=== PATIENT | female | born 1975 | race Caucasian/White ===

== ENCOUNTER 2019-09-29 14:52 | Emergency (ER) | payer SELFPAY ==
--- NOTE | 2019-09-29 15:18 | EDM.PDOC ---
ED HPI GENERAL MEDICAL PROBLEM - General Chief Complaint: ENT Problem Stated Complaint: TOOTH ACHE Time Seen by Provider: 09/29/19 15:05 Source of Information: Reports: Patient History Limitations: Reports: No Limitations, Other - History of Present Illness INITIAL COMMENTS - FREE TEXT/NARRATIVE: Patient presents to ER with complaints of a 2 week history of a toothache to the lower molar. Admits that she needs to be seen by a dentist but doesn't have insurance and cannot afford it. She states she has been taking Aleve but only dulls the pain. She has not seen a dentist in some time. Is noting mild swelling to the lower jaw line and hurts to chew. Onset: Gradual Duration: Week(s):, Getting Worse Location: Reports: Head Quality: Reports: Ache, Sharp Severity: Severe Improves with: Reports: Medication Treatments [employer]: Reports: NSAIDS - Related Data Allergies Allergy/AdvReac Type Severity Reaction Status Date / Time Sulfa (Sulfonamide Allergy Hives Verified 09/29/19 15:14 Antibiotics) Home Meds: Home Meds Amoxicillin/Potassium Clav [Augmentin 875-125 Tablet] 1 each PO BID #20 [Rx] Past Medical History - Past Health History Medical/Surgical History: Denies Medical/Surgical History Social & Family History - Tobacco Use Smoking Status *Q: Never Smoker ED ROS ENT - Review of Systems Review Of Systems: See Below Constitutional: Denies: Fever, Chills, Malaise, Weakness, Decreased Appetite HEENT: Reports: Dental Pain. Denies: Ear Pain, Rhinitis, Sinus Problem Respiratory: Denies: Shortness of Breath, Cough Cardiovascular: Denies: Chest Pain, Edema, Lightheadedness Endocrine: Denies: Fatigue GI/Abdominal: Denies: Abdominal Pain, Nausea, Vomiting : Reports: No Symptoms Musculoskeletal: Reports: No Symptoms Skin: Reports: No Symptoms Neurological: Reports: No Symptoms Psychiatric: Reports: No Symptoms ED EXAM, ENT - Physical Exam Exam: See Below Exam Limited By: No Limitations General Appearance: Alert, WD/WN, No Apparent Distress Ears: Normal External Exam, Normal TMs Nose: Normal Inspection, Normal Mucousa, No Blood Mouth/Throat: Dental Abcess, Dental Pain (multiple dental caries noted.), Dental Tenderness Head: Normocephalic Neck: Normal Inspection, Supple, Non-Tender Respiratory/Chest: No Respiratory Distress, Lungs Clear, Normal Breath Sounds Cardiovascular: Regular Rate, Rhythm GI/Abdominal: Normal Bowel Sounds, Soft, Non-Tender Neurological: Alert, Oriented Skin: Warm, Dry Departure - Departure Time of Disposition: 15:19 Disposition: Home, Self-Care 01 Condition: Good Clinical Impression: Dental abscess - Discharge Information *PRESCRIPTION DRUG MONITORING PROGRAM REVIEWED*: No *COPY OF PRESCRIPTION DRUG MONITORING REPORT IN PATIENT NUVIA: No Forms: ED Department Discharge Additional Instructions: 1. Rest 2. Soft diet 3. Augmentin 875 mg BID for 10 days 4. Ibuprofen 600 mg with 500 mg of tylenol every 6 hours as needed for pain 5. Follow up with dentist
== END 2019-09-29 15:30 | disposition home or self-care (01) ==
LOC: CC.ED 14:52
DX: K04.7 Periapical abscess without sinus (principal); K02.9 Dental caries, unspecified; Z88.2 Allergy status to sulfonamides
CPT/HCPCS: 99282

== ENCOUNTER 2019-10-27 11:20 | Inpatient (IN) | payer BC ==
[2019-10-27] MEDS ORDERED: Sodium Chloride 0.9% 1,000 ML IV ONE (12:00)
--- NOTE | 2019-10-27 12:03 | EDM.PDOC ---
ED HPI GENERAL MEDICAL PROBLEM - General Chief Complaint: ENT Problem Stated Complaint: TOOTH INFECTION Time Seen by Provider: 10/27/19 11:47 Source of Information: Reports: Patient History Limitations: Reports: No Limitations - History of Present Illness INITIAL COMMENTS - FREE TEXT/NARRATIVE: This patient is a 44 year old female that presents to the ER. Patient reports that couple weeks ago having right upper dental pain, placed on amoxicillin. Patient reports the pain resolved, but then 2 days later after abx tx she had a sore to the right upper mouth near the fractured tooth. Patient reports that that area began to have swelling and now has swelling to the right side of the face. Patient reports having redness to the right side of face. Patient reports severe pain and tenderness to the right side of face and sinuses and headache. Onset Date: 10/25/19 Duration: Day(s): (2), Getting Worse Location: Reports: Face Front/Back Body Image: 1 - redness, heat, swelling, pain, tenderness Quality: Reports: Throbbing Severity: Severe Improves with: Reports: None Worsens with: Reports: None Associated Symptoms: Reports: Headaches, Malaise. Denies: Confusion, Chest Pain , Cough, cough w sputum, Diaphoresis, Fever/Chills, Loss of Appetite, Nausea/ Vomiting, Rash, Seizure, Shortness of Breath, Syncope, Weakness Right Upper Face/Facial Pain Score (Numeric/FACES): 7 - Related Data Allergies Allergy/AdvReac Type Severity Reaction Status Date / Time Sulfa (Sulfonamide Allergy Hives Verified 10/27/19 11:32 Antibiotics) Past Medical History - Past Health History Medical/Surgical History: Denies Medical/Surgical History - Past Surgical History HEENT Surgical History: Reports: Other (See Below) Other HEENT Surgeries/Procedures: Lazy eye carrections x2 Social & Family History - Family History Family Medical History: Noncontributory - Tobacco Use Smoking Status *Q: Never Smoker - Caffeine Use Caffeine Use: Reports: Coffee - Recreational Drug Use Recreational Drug Use: No ED ROS ENT - Review of Systems Review Of Systems: See Below Constitutional: Reports: No Symptoms. Denies: Fever HEENT: Reports: Dental Pain, Sinus Problem, Other (facial sinus swelling right face. dental abscess. cant open mouth well.). Denies: Throat Swelling Respiratory: Reports: No Symptoms Cardiovascular: Reports: No Symptoms Endocrine: Reports: No Symptoms GI/Abdominal: Reports: No Symptoms : Reports: No Symptoms Musculoskeletal: Reports: No Symptoms Skin: Reports: Erythema (right face) Neurological: Reports: No Symptoms Psychiatric: Reports: No Symptoms Hematologic/Lymphatic: Reports: No Symptoms Immunologic: Reports: No Symptoms ED EXAM, ENT - Physical Exam Exam: See Below Exam Limited By: No Limitations General Appearance: Alert, WD/WN, No Apparent Distress, Anxious Eye Exam: Bilateral Eye: EOMI, PERRL Ears: Normal External Exam, Normal Canal, Hearing Grossly Normal, Normal TMs Nose: Normal Inspection, Normal Mucousa, No Blood Mouth/Throat: Normal Lips, Dental Abcess (moderate right upper with moderate swelling to the right face and to right temporal, inferior orbital. Redness, heat. Severe tenderness. ), Dental Pain, Dental Tenderness (right upper. dental decay. ), Trismus (moderate). No: Lip Swelling, Lip Ulcers, Muffled Voice, Peritonsillar Mass, Pharyngeal Erythema, Throat Pain, Throat Swelling, Tongue Swelling, Tonsillar Erythema, Tonsillar Exudates, Tonsillar Swelling, Uvular Deviation, Uvular Edema Head: Atraumatic, Normocephalic Neck: Normal Inspection, Supple, Non-Tender, Full Range of Motion, Lymphadenopathy (R). No: Limited Range of Motion Respiratory/Chest: No Respiratory Distress, Lungs Clear, Normal Breath Sounds, No Accessory Muscle Use Cardiovascular: Normal Peripheral Pulses, Regular Rate, Rhythm, No Edema, No Gallop, No JVD, No Murmur, No Rub GI/Abdominal: Soft, Non-Tender Back: Normal Inspection Extremities: Normal Inspection, Normal Range of Motion, Non-Tender, No Pedal Edema, Normal Capillary Refill Neurological: Alert, Oriented, Normal Cognition, Normal Gait, No Motor/Sensory Deficits Psychiatric: Anxious, Tearful Skin: Warm, Dry, Intact, Erythema (right face), Increased Warmth (right face) Lymphatic: No Adenopathy Course - Vital Signs Last Recorded V/S: Last Vital Signs Temp 98.9 F 10/27/19 11:27 Pulse 88 10/27/19 11:27 Resp 18 10/27/19 11:27 BP 127/81 10/27/19 11:27 Pulse Ox 99 10/27/19 11:27 - Orders/Labs/Meds Orders: Active Orders 24 hr Category Date Time Status Max Facial Sinus w Cont [CT] Stat Exams 10/27/19 12:00 Ordered C-REACTIVE PROTEIN [CHEM] Stat Lab 10/27/19 11:50 Ordered CBC WITH AUTO DIFF [HEME] Stat Lab 10/27/19 11:50 Ordered COMPREHENSIVE METABOLIC PN,CMP [CHEM] Stat Lab 10/27/19 11:50 Ordered CULTURE BLOOD [BC] Stat Lab 10/27/19 11:50 Ordered CULTURE BLOOD [BC] Stat Lab 10/27/19 11:50 Ordered HCG QUALITATIVE,SERUM [CHEM] Stat Lab 10/27/19 12:01 Ordered LACTIC ACID [CHEM] Stat Lab 10/27/19 11:50 Ordered Sodium Chloride 0.9% [Normal Saline] 1,000 ml Med 10/27/19 12:00 Active IV .BOLUS Blood Culture x2 Reflex Set [OM.PC] Stat Oth 10/27/19 11:50 Ordered Medication Orders Sodium Chloride (Normal Saline) 1,000 mls @ 1,000 mls/hr IV .BOLUS ONE Stop: 10/27/19 12:59 Meds: Medications Generic Name Dose Route Start Last Admin Trade Name Freq PRN Reason Stop Dose Admin Sodium Chloride 1,000 mls @ 1,000 mls/hr 10/27/19 12:00 Normal Saline IV 10/27/19 12:59 .BOLUS ONE Departure - Departure Time of Disposition: 12:10 Disposition: Admitted As Inpatient 65 Condition: Serious Clinical Impression: Dental abscess, Dental caries, Facial cellulitis - Discharge Information *PRESCRIPTION DRUG MONITORING PROGRAM REVIEWED*: Not Applicable *COPY OF PRESCRIPTION DRUG MONITORING REPORT IN PATIENT NUVIA: Not Applicable Forms: ED Department Discharge Sepsis Event Note - Evaluation Sepsis Screening Result: No Definite Risk - Focused Exam Vital Signs: Vital Signs Temp Pulse Resp BP Pulse Ox 10/27/19 11:27 98.9 F 88 18 127/81 99 Date Exam was Performed: 10/27/19 Time Exam was Performed: 12:05 - My Orders Last 24 Hours: My Active Orders 10/27/19 11:50 C-REACTIVE PROTEIN [CHEM] Stat CBC WITH AUTO DIFF [HEME] Stat COMPREHENSIVE METABOLIC PN,CMP [CHEM] Stat CULTURE BLOOD [BC] Stat CULTURE BLOOD [BC] Stat LACTIC ACID [CHEM] Stat Blood Culture x2 Reflex Set [OM.PC] Stat 10/27/19 12:00 Max Facial Sinus w Cont [CT] Stat Sodium Chloride 0.9% [Normal Saline] 1,000 ml IV .BOLUS 10/27/19 12:01 HCG QUALITATIVE,SERUM [CHEM] Stat - Assessment/Plan Last 24 Hours: My Active Orders 10/27/19 11:50 C-REACTIVE PROTEIN [CHEM] Stat CBC WITH AUTO DIFF [HEME] Stat COMPREHENSIVE METABOLIC PN,CMP [CHEM] Stat CULTURE BLOOD [BC] Stat CULTURE BLOOD [BC] Stat LACTIC ACID [CHEM] Stat Blood Culture x2 Reflex Set [OM.PC] Stat 10/27/19 12:00 Max Facial Sinus w Cont [CT] Stat Sodium Chloride 0.9% [Normal Saline] 1,000 ml IV .BOLUS 10/27/19 12:01 HCG QUALITATIVE,SERUM [CHEM] Stat Plan: PLEASE SEE RN NOTE FOR PFSH. PLEASE USE ER H&P ADMIT H&P.
[2019-10-27 12:33] LABS: CHLORIDE,CL 108 mEq/L (98-106); SODIUM,NA 144 mEq/L (136-145)
[2019-10-27] MEDS ORDERED: Iopamidol 612 MG/ML 100 ML Bottle IVPUSH ONE (12:35)
[2019-10-27] MEDS ORDERED: Morphine 2 MG/ML Syringe IVPUSH PRN (12:52)
[2019-10-27] MEDS: metroNIDAZOLE/Normal Saline 500 MG in Premix Bag 1 BAG IV SCH ×2 (13:25→20:07)
[2019-10-27] MEDS: cefTRIAXone 1 GM Vial IVPUSH SCH (13:25)
[2019-10-27] MEDS: Ondansetron 4 MG/2 ML SDV IV PRN ×2 (13:27→20:10)
[2019-10-27] MEDS: Ibuprofen 200 MG Tab PO SCH ×2 (14:34→19:32)
[2019-10-28] MEDS: Acetaminophen/oxyCODONE 325-5 MG Tab PO PRN ×3 (00:10→14:42)
[2019-10-28] MEDS: Acetaminophen 325 MG Tab PO PRN ×2 (04:06→12:39)
[2019-10-28] MEDS: metroNIDAZOLE/Normal Saline 500 MG in Premix Bag 1 BAG IV SCH ×2 (04:07→12:41)
[2019-10-28] MEDS: Ondansetron 4 MG/2 ML SDV IV PRN ×3 (04:12→14:44)
[2019-10-28] MEDS: Ibuprofen 200 MG Tab PO SCH ×3 (07:29→20:15)
[2019-10-28 08:13] LABS: CHLORIDE,CL 108 mEq/L (98-106); SODIUM,NA 143 mEq/L (136-145)
[2019-10-28] MEDS: cefTRIAXone 1 GM Vial IVPUSH SCH (12:42)
[2019-10-28] MEDS: Clindamycin Phosphate in D5W 600 MG in Premix Bag 1 BAG IV SCH ×4 (15:00→20:16)
[2019-10-28] MEDS ORDERED: Clindamycin Phosphate in D5W 600 MG in Premix Bag 1 BAG IV SCH ×2 (16:00)
--- NOTE | 2019-10-28 21:55 | PCM.PN ---
- General Info Date of Service: 10/28/19 Admission Dx/Problem (Free Text): Dental Abscess Facial Cellulitis Functional Status: Reports: Tolerating Diet, Ambulating. Denies: Pain Controlled - Review of Systems General: Reports: Malaise, Chills. Denies: Fever, Weakness, Fatigue HEENT: Reports: Other (tooth pain/facial discomfort). Denies: Ear Pain, Sore Throat Pulmonary: Reports: No Symptoms Cardiovascular: Reports: No Symptoms Gastrointestinal: Reports: No Symptoms Musculoskeletal: Reports: No Symptoms Skin: Reports: Other (right cheek mildly red near the right nare) Neurological: Reports: No Symptoms - Patient Data Vitals - Most Recent: Last Vital Signs Temp 98.5 F 10/28/19 16:00 Pulse 84 10/28/19 16:00 Resp 16 10/28/19 16:00 BP 113/73 10/28/19 16:00 Pulse Ox 97 10/28/19 16:00 Weight - Most Recent: 192 lb 1.6 oz I&O - Last 24 Hours: Intake & Output 10/28/19 10/28/19 10/28/19 06:59 14:59 22:59 Intake Total 100 50 Balance 100 50 Lab Results Last 24 Hours: Laboratory Results - last 24 hr 10/28/19 10/28/19 10/28/19 Range/Units 05:00 05:00 13:30 WBC 8.1 (5.0-10.0) 10^3/uL RBC 4.84 (4.00-5.50) 10^6/uL Hgb 13.8 (12.0-16.0) g/dL Hct 40.5 (37.0-47.0) % MCV 83.7 (82.0-94.0) fL MCH 28.5 (27.0-32.0) pg MCHC 34.1 (33.0-38.0) g/dL RDW Coeff of Lan 13.2 (11.0-15.0) % Plt Count 219 (150-400) 10^3/uL Neut % (Auto) 78.1 (35-85) % Lymph % (Auto) 12.4 (10-55) % [place] % (Auto) 7.6 (0-16) % Eos % (Auto) 1.8 (0-5) % Baso % (Auto) 0.1 (0-3) % Neut # (Auto) 6.35 (1.80-7.00) 10^3/uL Lymph # (Auto) 1.01 (1.00-4.80) 10^3/uL [place] # (Auto) 0.62 (0.00-0.80) 10^3/uL Eos # (Auto) 0.15 (0.00-0.45) 10^3/uL Baso # (Auto) 0.01 10^3/uL Sodium 143 (136-145) mEq/L Potassium 4.0 (3.5-5.0) mEq/L Chloride 108 H (98-106) mEq/L Carbon Dioxide 25 (21-32) mmol/L BUN 11 (7-18) mg/dL Creatinine 0.6 (0.6-1.0) mg/dL Est Cr Clr Drug Dosing 110.84 mL/min Estimated GFR (MDRD) > 60 (>=60) mL/min Glucose 100 H (75-99) mg/dL Calcium 7.9 L (8.4-10.1) mg/dL C-Reactive Protein 4.7 H (0.2-0.8) mg/dL Vancomycin Trough 9.9 L (10-20) ug/mL [place] Results Last 24 Hours: Microbiology 10/27/19 12:15 Aerobic Blood Culture - Preliminary Blood - Venous NO GROWTH AFTER 1 DAY Anaerobic Blood Culture - Preliminary NO GROWTH AFTER 1 DAY 10/27/19 12:10 Aerobic Blood Culture - Preliminary Blood - Venous - Lab Draw NO GROWTH AFTER 1 DAY Anaerobic Blood Culture - Preliminary NO GROWTH AFTER 1 DAY Med Orders - Current: Current Medications Acetaminophen (Tylenol) 650 mg PO Q4H PRN PRN Reason: Pain (Mild 1-3)/fever Last Admin: 10/28/19 12:39 Dose: 650 mg Clindamycin Phosphate 600 mg/ (Premix) 50 mls @ 100 mls/hr IV Q6H [facility] Last Admin: 10/28/19 20:16 Dose: 100 mls/hr Ibuprofen (Motrin) 800 mg PO TID [facility] Last Admin: 10/28/19 20:15 Dose: 800 mg Morphine Sulfate (Morphine) 2 mg IVPUSH Q2H PRN PRN Reason: Pain (severe 7-10) Ondansetron HCl (Zofran) 4 mg IV Q6H PRN PRN Reason: Nausea/Vomiting Last Admin: 10/28/19 14:44 Dose: 4 mg Oxycodone/Acetaminophen (Percocet 325-5 Mg) 1 tab PO Q4H PRN PRN Reason: Pain (moderate 4-6) Last Admin: 10/28/19 14:42 Dose: 1 tab Discontinued Medications Ceftriaxone Sodium (Rocephin) 1 gm IVPUSH Q24H [facility] Last Admin: 10/28/19 12:42 Dose: 1 gm Sodium Chloride (Normal Saline) 1,000 mls @ 1,000 mls/hr IV .BOLUS ONE Stop: 10/27/19 12:59 Last Admin: 10/27/19 12:50 Dose: 1,000 mls/hr Metronidazole 500 mg/ Premix 100 mls @ 100 mls/hr IV Q8H [facility] Last Admin: 10/28/19 12:41 Dose: 100 mls/hr Vancomycin HCl 1 gm/Vancomycin HCl 250 mg/ Sodium Chloride 500 mls @ 333 mls/ hr IV Q8H [facility] Last Admin: 10/28/19 15:33 Dose: Not Given Clindamycin Phosphate 600 mg/ (Premix) 50 mls @ 100 mls/hr IV Q6H [facility] Iopamidol (Isovue-300 (61%)) 100 ml IVPUSH ONETIME ONE Stop: 10/27/19 12:36 Last Admin: 10/27/19 12:45 Dose: 100 ml Vancomycin HCl (Pharmacy To Dose - Vancomycin) 1 dose .XX ASDIRECTED JOSE C - Exam General: Alert, Oriented HEENT: Mucous Membr. Moist/[place], Other (Has pain and tenderness to right upper and lower molar region. Mild gum swelling. Right cheek near the maxillary sinus is firm, tender.) Neck: Lymphadenopathy Lungs: Clear to Auscultation, Normal Respiratory Effort Cardiovascular: Regular Rate, Regular Rhythm GI/Abdominal Exam: Normal Bowel Sounds, Soft, Non-Tender Extremities: Normal Inspection, No Pedal Edema Skin: Warm, Dry, Other (skin marker noted on right cheek, minimal redness today in this area) Neurological: No New Focal Deficit Sepsis Event Note - Evaluation Sepsis Screening Result: No Definite Risk - Focused Exam Vital Signs: Vital Signs Temp Pulse Resp BP Pulse Ox 10/28/19 16:00 98.5 F 84 16 113/73 97 10/28/19 12:00 98.1 F 77 16 120/72 97 Date Exam was Performed: 10/28/19 Time Exam was Performed: 21:44 - Problem List & Annotations (1) Dental abscess SNOMED Code(s): 351675127 Code(s): K04.7 - PERIAPICAL ABSCESS WITHOUT SINUS Status: Acute Priority : High Current Visit: Yes (2) Dental caries SNOMED Code(s): 23853940 Code(s): K02.9 - DENTAL CARIES, UNSPECIFIED Status: Acute Priority: High Current Visit: Yes (3) Facial cellulitis SNOMED Code(s): 144238807 Code(s): L03.211 - CELLULITIS OF FACE Status: Acute Priority: High Current Visit: Yes - Problem List Review Problem List Initiated/Reviewed/Updated: Yes - Assessment Assessment:: Dental Abscess Facial Cellulitis - Plan Plan:: Patient admits to feeling somewhat better today. States area of discomfort is more localized today to near the right nare/cheek. Redness on face has improved per facial markings. Labs remain normal today, no change in WBC. CRP stable at 4.7. Does have gum swelling and tenderness, feels drainage from the area today. No fevers. CT scan report notes dental abscess but no orbital concerns. Will stop IV vanco, flagyl and rocephin and switch to Cleocin. Repeat labs in am. Discussed need to see dentist due to ongoing caries and infections. Probable discharge in am.
[2019-10-29] MEDS: Acetaminophen 325 MG Tab PO PRN (02:02)
[2019-10-29] MEDS: Clindamycin Phosphate in D5W 600 MG in Premix Bag 1 BAG IV SCH ×4 (02:04→07:13)
[2019-10-29] MEDS: Ibuprofen 200 MG Tab PO SCH (07:13)
[2019-10-29 07:45] LABS: CHLORIDE,CL 109 mEq/L (98-106); SODIUM,NA 143 mEq/L (136-145)
[2019-10-29 08:22] VITALS: BP 103/65; PULSE 76
[2019-10-29] MEDS ORDERED: Clindamycin Phosphate in D5W 600 MG in Premix Bag 1 BAG IV SCH ×2 (12:00)
--- NOTE | 2019-10-29 21:42 | PCM.DCSUM1 ---
Discharge Summary - Hospital Course Free Text/Narrative:: Kaylyn is a 44 year year old female that presented to the ER with complaints of right upper dental pain, facial swelling. Patient had previously been on antibiotics for a tooth abscess and had felt better for a couple days. She has a fractured tooth in the upper and lower molar region. Did not see dentist during this time as could not afford it but now has insurance to do so. Patient noted increased swelling, pain and tenderness to the right side of her face and sinuses. Complaining of headache. WBC, panel [address] scan done and admitted for IV antibiotics. Diagnosis: Stroke: Yes Modified [place] Scale: No Symptoms at All Modified [place] Scale Score: 0 - Discharge Data Discharge Date: 10/29/19 Discharge Disposition: Home, Self-Care 01 Condition: Good - Referral to Home Health Primary Care Physician: PCP None - Discharge Diagnosis/Problem(s) (1) Dental abscess SNOMED Code(s): 400898496 ICD Code: K04.7 - PERIAPICAL ABSCESS WITHOUT SINUS Status: Acute Priority : High (2) Dental caries SNOMED Code(s): 11327131 ICD Code: K02.9 - DENTAL CARIES, UNSPECIFIED Status: Acute Priority: High (3) Facial cellulitis SNOMED Code(s): 363585255 ICD Code: L03.211 - CELLULITIS OF FACE Status: Acute Priority: High - Patient Summary/Data Complications: none Hospital Course: Patient is showing improvement today. Swelling improved, redness improved. She is afebrile. Less pain. WBC has remained normal, CRP improved today. Is tolerating oral intake well. CT scan was done and showed dental abscess with concern to the maxillary sinus. No orbital involvement so IV antibiotics were switched to Cleocin. Will discharge home on oral Cleocin today. Follow up for recheck in one week. Arrange to see dentist for repair of dental caries. - Patient Instructions Diet: Usual Diet as Tolerated Activity: As Tolerated - Discharge Plan *PRESCRIPTION DRUG MONITORING PROGRAM REVIEWED*: Not Applicable *COPY OF PRESCRIPTION DRUG MONITORING REPORT IN PATIENT NUVIA: Not Applicable Prescriptions/Med Rec: Clindamycin HCl [Cleocin HCl] 300 mg PO QID #40 capsule Home Medications: Home Meds Clindamycin HCl [Cleocin HCl] 300 mg PO QID #40 capsule 10/29/19 [Rx] Patient Handouts: Cellulitis, Adult Forms: ED Department Discharge Referrals: oSnya Andrews PA [ED Midlevel Provider] - (Follow up with Velma in 7-10 days ) - Discharge Summary/Plan Comment DC Time >30 min.: No - General Info Date of Service: 10/29/19 Admission Dx/Problem (Free Text: Dental Abscess Facial Cellulitis Functional Status: Reports: Pain Controlled, Tolerating Diet, Ambulating - Review of Systems General: Denies: Fever, Weakness, Fatigue, Malaise, Chills HEENT: Reports: Sinus Congestion, Other (tooth pain) Pulmonary: Denies: Shortness of Breath Cardiovascular: Denies: Chest Pain Gastrointestinal: Denies: Abdominal Pain, Nausea, Vomiting Genitourinary: Reports: No Symptoms Musculoskeletal: Reports: No Symptoms Skin: Reports: Other (redness to right cheek improving) - Patient Data Vitals - Most Recent: Last Vital Signs Temp 97.8 F 10/29/19 08:00 Pulse 76 10/29/19 08:00 Resp 16 10/29/19 08:00 BP 103/65 10/29/19 08:00 Pulse Ox 100 10/29/19 08:00 Weight - Most Recent: 192 lb 1.6 oz I&O - Last 24 hours: Intake & Output 10/29/19 10/29/19 10/29/19 06:59 14:59 22:59 Intake Total 50 Balance 50 Lab Results - Last 24 hrs: Laboratory Results - last 24 hr 10/29/19 10/29/19 Range/Units 07:05 07:05 WBC 5.2 (5.0-10.0) 10^3/uL RBC 4.44 (4.00-5.50) 10^6/uL Hgb 12.6 (12.0-16.0) g/dL Hct 37.2 (37.0-47.0) % MCV 83.8 (82.0-94.0) fL MCH 28.4 (27.0-32.0) pg MCHC 33.9 (33.0-38.0) g/dL RDW Coeff of Lan 12.9 (11.0-15.0) % Plt Count 256 (150-400) 10^3/uL Neut % (Auto) 68.2 (35-85) % Lymph % (Auto) 18.6 (10-55) % [place] % (Auto) 8.5 (0-16) % Eos % (Auto) 4.3 (0-5) % Baso % (Auto) 0.4 (0-3) % Neut # (Auto) 3.53 (1.80-7.00) 10^3/uL Lymph # (Auto) 0.96 L (1.00-4.80) 10^3/uL [place] # (Auto) 0.44 (0.00-0.80) 10^3/uL Eos # (Auto) 0.22 (0.00-0.45) 10^3/uL Baso # (Auto) 0.02 10^3/uL Sodium 143 (136-145) mEq/L Potassium 3.7 (3.5-5.0) mEq/L Chloride 109 H (98-106) mEq/L Carbon Dioxide 26 (21-32) mmol/L BUN 10 (7-18) mg/dL Creatinine 0.5 L (0.6-1.0) mg/dL Est Cr Clr Drug Dosing 133.01 mL/min Estimated GFR (MDRD) > 60 (>=60) mL/min Glucose 122 H (75-99) mg/dL Calcium 8.5 (8.4-10.1) mg/dL C-Reactive Protein 5.1 H (0.2-0.8) mg/dL [facility] Results - Last 24 hrs: Microbiology 10/27/19 12:15 Aerobic Blood Culture - Preliminary Blood - Venous NO GROWTH AFTER 2 DAYS Anaerobic Blood Culture - Preliminary NO GROWTH AFTER 2 DAYS 10/27/19 12:10 Aerobic Blood Culture - Preliminary Blood - Venous - Lab Draw NO GROWTH AFTER 2 DAYS Anaerobic Blood Culture - Preliminary NO GROWTH AFTER 2 DAYS Med Orders - Current: Current Medications Discontinued Medications Acetaminophen (Tylenol) 650 mg PO Q4H PRN PRN Reason: Pain (Mild 1-3)/fever Last Admin: 10/29/19 02:02 Dose: 650 mg Ceftriaxone Sodium (Rocephin) 1 gm IVPUSH Q24H [facility] Last Admin: 10/28/19 12:42 Dose: 1 gm Sodium Chloride (Normal Saline) 1,000 mls @ 1,000 mls/hr IV .BOLUS ONE Stop: 10/27/19 12:59 Last Admin: 10/27/19 12:50 Dose: 1,000 mls/hr Metronidazole 500 mg/ Premix 100 mls @ 100 mls/hr IV Q8H [facility] Last Admin: 10/28/19 12:41 Dose: 100 mls/hr Vancomycin HCl 1 gm/Vancomycin HCl 250 mg/ Sodium Chloride 500 mls @ 333 mls/ hr IV Q8H [facility] Last Admin: 10/28/19 15:33 Dose: Not Given Clindamycin Phosphate 600 mg/ (Premix) 50 mls @ 100 mls/hr IV Q6H [facility] Clindamycin Phosphate 600 mg/ (Premix) 50 mls @ 100 mls/hr IV Q6H [facility] Last Admin: 10/29/19 07:13 Dose: 100 mls/hr Clindamycin Phosphate 600 mg/ (Premix) 50 mls @ 100 mls/hr IV Q6H [facility] Last Admin: 10/29/19 11:41 Dose: 100 mls/hr Ibuprofen (Motrin) 800 mg PO TID [facility] Last Admin: 10/29/19 07:13 Dose: 800 mg Iopamidol (Isovue-300 (61%)) 100 ml IVPUSH ONETIME ONE Stop: 10/27/19 12:36 Last Admin: 10/27/19 12:45 Dose: 100 ml Morphine Sulfate (Morphine) 2 mg IVPUSH Q2H PRN PRN Reason: Pain (severe 7-10) Ondansetron HCl (Zofran) 4 mg IV Q6H PRN PRN Reason: Nausea/Vomiting Last Admin: 10/28/19 14:44 Dose: 4 mg Oxycodone/Acetaminophen (Percocet 325-5 Mg) 1 tab PO Q4H PRN PRN Reason: Pain (moderate 4-6) Last Admin: 10/28/19 14:42 Dose: 1 tab Vancomycin HCl (Pharmacy To Dose - Vancomycin) 1 dose .XX ASDIRECTED JOSE C - Exam General: Reports: Alert, Oriented HEENT: Reports: Mucous Membr. Moist/[place] Neck: Reports: Supple Lungs: Reports: Clear to Auscultation, Normal Respiratory Effort Cardiovascular: Reports: Regular Rate, Regular Rhythm GI/Abdominal Exam: Normal Bowel Sounds, Soft, Non-Tender Skin: Reports: Other (redness and swelling has improved to right cheek. Area of firmness near nare much improved.) Wound/Incisions: Reports: Erythema Neurological: Reports: No New Focal Deficit
== END 2019-10-29 12:30 | disposition home or self-care (01) | DRG 114 ==
LOC: CC.ED 11:20 → UNDOADMIN 12:23 → CC.MS 12:23
PROVIDERS: ADMIT Nurse Practitioner; ATTEND Family Medicine
DX: K04.7 Periapical abscess without sinus (principal); L03.211 Cellulitis of face; K02.9 Dental caries, unspecified; Z88.2 Allergy status to sulfonamides
CPT/HCPCS: 36415; 70487; 80048; 80053; 80202; 83605; 84703; 85025; 86140; 87040; 99284-25; A9270-GY; J0696; J2405; J3370; J3490; J7030; J7040; Q9967